=== PATIENT | male | born 1970 | race Caucasian/White ===

== ENCOUNTER 2022-10-12 14:33 | Emergency (ER) | payer OTHER, SELFPAY ==
--- NOTE | ~2022-10-12 | XR_ITS ---
EXAMINATION: XR LUMBOSACRAL SPINE CLINICAL INFORMATION: Back pain COMPARISON: None available. TECHNIQUE: Three views of the lumbosacral spine. FINDINGS: Lumbar vertebrae have normal height and normal alignment. There is no fracture or bone destruction. No spondylolysis. There is multilevel vertebral endplate spur of lower thoracic and lumbar vertebrae. Multilevel disc height narrowing which is most significant at L4-L5 and L5-S1. There is mild to moderate facet joint arthrosis at the lower lumbar spine. Sacroiliac joints are normal. XR/XR lumbar spine 2-3V IMPRESSION: 1. No acute abnormality. 2. Degenerative spondylosis of lumbar spine.
[2022-10-12 14:38] VITALS: BP 170/99; PULSE 67; RESP 19; TEMP 36.6; O2SAT 97; BMI 42.5
--- NOTE | 2022-10-12 14:38 | ED.BACK ---
HPI - Back Pain/Injury General Chief Complaint: Back Pain/Injury <JOSE MIGUEL Crump - Last Filed: 10/12/22 14:39> Stated Complaint: Back pain <JOSE MIGUEL Crump Last Filed: 10/12/22 14:39> Time Seen by Provider: 10/12/22 15:46 <JOSE MIGUEL Crump - Last Filed: 10/12/22 14:39> Source: patient <JOSE MIGUEL Gibson - Last Filed: 10/12/22 17:32> Mode of arrival: ambulatory <JOSE MIGUEL Gibson Last Filed: 10/12/22 17:32> Limitations: no limitations <JOSE MIGUEL Gibson Last Filed: 10/12/22 17:32> History of Present Illness HPI Narrative: 52-year-old male with no significant past medical history presents to the ED c/o 5 days of left lower back pain after moving heavy weights at home. pain is nonradiating, worse with movement. Reports minimal relief with Tylenol/naproxen. Denies urinary/stool incontinence, hematuria, muscle weakness, numbness, or tingling, fever, chills, SOB, chest pain. <JOSE MIGUEL Gibson Last Filed: 10/12/22 17:32> MD elicited complaint: back pain <JOSE MIGUEL Gibson - Last Filed: 10/12/22 17:32> Onset (ago): day(s) (5) <JOSE MIGUEL Gibson Last Filed: 10/12/22 17:32> Treatments prior to arrival: NSAIDS <JOSE MIGUEL Gibson Last Filed: 10/12/22 17:32> Related Data Home Medications: Previous Rx's Medication Instructions Recorded acetaminophen 500 mg tablet 500 mg PO Q6H PRN fever or pain 10/12/22 (Tylenol Extra Strength) #14 tabs cyclobenzaprine 5 mg tablet 5 mg PO Q8H PRN pain (scale score 10/12/22 7-10) 5 days #14 tabs lidocaine 5 % topical patch 1 patch topical DAILY PRN pain #30 10/12/22 (Lidoderm) ea naproxen 500 mg tablet 500 mg PO BID PRN pain 10 days #20 10/12/22 tabs <JOSE MIGUEL Crump - Last Filed: 10/12/22 14:39> Allergies/Adverse Reactions: Allergies Allergy/AdvReac Type Severity Reaction Status Date / Time No Known Allergies Allergy Verified 10/12/22 14:37 [No Known Allergies*] <JOSE MIGUEL Crump - Last Filed: 10/12/22 14:39> Review of Systems Review of Systems: Constitutional: No Fever, No Chills ENT/Mouth: No Nasal Congestion, No sore throat, No Rhinorrhea, No Swallowing Difficulty Cardiovascular: No Chest Pain, No SOB Respiratory: No Cough, No Sputum, No Wheezing Gastrointestinal: No Nausea, No Vomiting, No Diarrhea, No Constipation, No Abdominal pain Genitourinary: No Hematuria, No Urinary Incontinence/retention, No Flank Pain Musculoskeletal: + back pain, No joint pain, No Myalgias, No Joint Swelling Skin: No Skin Lesions, No rash Neuro: No Weakness, No Numbness, No Paresthesias <JOSE MIGUEL Gibson - Last Filed: 10/12/22 17:32> Yes all other systems are reviewed and are negative <JOSE MIGUEL Gibson - Last Filed: 10/12/22 17:32> Constitutional: Constitutional: Reports as per HPI <JOSE MIGUEL Gibson - Last Filed: 10/12/22 17:32> Neurologic: Denies Sensory deficit (Neuro) <JOSE MIGUEL Gibson Last Filed: 10/12/22 17:32> [facility] [place] Past Medical History Attestation statement: The following information was validated with the patient. <JOSE MIGUEL Gibson Last Filed: 10/12/22 17:32> Social History Social History: Social History Advance Directives: No Advance Directives Information Provided: No <JOSE MIGUEL Crump Last Filed: 10/12/22 14:39> Physical Exam Vital Signs: Vital Signs: Last Vital Signs Temp 98 F 10/12/22 14:38 Pulse 67 10/12/22 14:38 Resp 19 10/12/22 14:38 BP 170/99 H 10/12/22 14:38 Pulse Ox 97 10/12/22 14:38 O2 Del Method Room Air 10/12/22 14:38 BMI result Body Mass Index 42.5 <JOSE MIGUEL Crump - Last Filed: 10/12/22 14:39> Vital Signs: Last Vital Signs Temp 98 F 10/12/22 14:38 Pulse 67 10/12/22 14:38 Resp 19 10/12/22 14:38 BP 170/99 H 10/12/22 14:38 Pulse Ox 97 10/12/22 14:38 O2 Del Method Room Air 10/12/22 14:38 BMI result Body Mass Index 42.5 <JOSE MIGUEL Gibson - Last Filed: 10/12/22 17:32> Const: General: cooperative, healthy appearing and no acute distress <JOSE MIGUEL Gibson - Last Filed: 10/12/22 17:32> Orientation/consciousness: patient oriented x3 <JOSE MIGUEL Gibson - Last Filed: 10/12/22 17:32> Limitations: no limitations <JOSE MIGUEL Gibson - Last Filed: 10/12/22 17:32> HEENT: Head: Yes normal to inspection and Yes atraumatic <JOSE MIGUEL Gibson - Last Filed: 10/12/22 17:32> Ears: hearing grossly normal bilaterally <JOSE MIGUEL Gibson - Last Filed: 10/12/22 17:32> General nose exam: Normal external nose present <JOSE MIGUEL Gibson - Last Filed: 10/12/22 17:32> Face and sinus: Yes normal facial exam <JOSE MIGUEL Gibson - Last Filed: 10/12/22 17:32> Eyes: General: appearance normal, both eyes and all related structures <JOSE MIGUEL Gibson - Last Filed: 10/12/22 17:32> EOM: EOMs intact bilaterally <JOSE MIGUEL Gibson - Last Filed: 10/12/22 17:32> Neck: Other: No midline cervical spinous tenderness <JOSE MIGUEL Gibson - Last Filed: 10/12/22 17:32> Neck: Yes normal visual inspection and Yes no meningeal signs <JOSE MIGUEL Gibson - Last Filed: 10/12/22 17:32> Resp: Effort & Inspection: normal respiratory effort and no respiratory distress <Ammy Sánchez PA - Last Filed: 10/12/22 17:32> Auscultation: clear to auscultation bilaterally <Ammy Sánchez PA - Last Filed: 10/12/22 17:32> Cardio: Rate: regular rate <Ammy Sánchze PA - Last Filed: 10/12/22 17:32> Heart sounds: S1 normal heart sound present and S2 normal heart sound present <Ammy Sánchez PA - Last Filed: 10/12/22 17:32> GI: Inspection: Yes normal to inspection <Ammy Sánchez PA - Last Filed: 10/12/22 17:32> Palpation (GI): Soft to palpation, nontender, no guarding and not rigid <Ammy Sánchez PA - Last Filed: 10/12/22 17:32> : General: Yes no CVA tenderness <Ammy Sánchez PA - Last Filed: 10/12/22 17:32> Back/Spine/Pelvis: Other: No midline thoracic/lumbar spinous tenderness/step-off or deformity. +Tenderness to palpation to left lumbar MSK region. no erythema/ecchymosis <Ammy Sánchez PA - Last Filed: 10/12/22 17:32> Back: no CVA tenderness and No ecchymosis <Ammy Sánchez PA - Last Filed: 10/12/22 17:32> Thoracic/Lumbar Spine: thoracic and lumbar spine normal to inspection <Ammy Sánchez PA - Last Filed: 10/12/22 17:32> Skin: Other: No erythema/ecchymosis noted, no visible deformity, no fluctuate/warmth over the lumbar region. <Ammy Sánchez PA - Last Filed: 10/12/22 17:32> Rashes: no rashes <Ammy Sánchez PA - Last Filed: 10/12/22 17:32> Wounds: no wounds <Ammy Sánchez PA - Last Filed: 10/12/22 17:32> Neuro: Other: Strength intact throughout. No saddle anesthesia. Sensation intact to light touch. Neurovascular intact distally <Ammy Sánchez PA - Last Filed: 10/12/22 17:32> General: patient oriented x3, tone normal, moves all extremities and no meningeal signs <JOSE MIGUEL Gibson Last Filed: 10/12/22 17:32> Gait exam (Neuro): Normal gait present <JOSE MIGUEL Gibson Last Filed: 10/12/22 17:32> Motor exam (neuro): 5/5 motor strength present throughout <JOSE MIGUEL Gibson Last Filed: 10/12/22 17:32> Sensory Exam: No Sensory deficit (Neuro) <JOSE MIGUEL Gibson Last Filed: 10/12/22 17:32> Extrem: General: Yes normal to inspection <JOSE MIGUEL Gibson Last Filed: 10/12/22 17:32> Course Course Course Narrative: This is an RME: Additional HPI, ROS, PE not included below will be deferred to primary provider. 52-year-old male presents with low mid back pain status post lifting 45 lb weight, patient reports this happened Four days ago and has been worsening ever since. Worse with movement better at rest. He heard a pop. Patient reports previous back injuries that have felt similar to this. Patient denies red flag symptoms. patient has been trying OTC medications without relief. Diffuse tenderness to lumbar region. Including midline. Plan imaging, pain medicine <JOSE MIGUEL Crump - Last Filed: 10/12/22 14:39> This is an RME: Additional HPI, ROS, PE not included below will be deferred to primary provider. 52-year-old male presents with low mid back pain status post lifting 45 lb weight, patient reports this happened Four days ago and has been worsening ever since. Worse with movement better at rest. He heard a pop. Patient reports previous back injuries that have felt similar to this. Patient denies red flag symptoms. patient has been trying OTC medications without relief. Diffuse tenderness to lumbar region. Including midline. Plan imaging, pain medicine XR lumbar spine 2-3V IMPRESSION: 1.? No acute abnormality. 2.? Degenerative spondylosis of lumbar spine. > Results discussed with patient including worrisome signs and symptoms and strict return precautions, and when to return to the emergency department. They verbalized understanding and feel safe for discharge at this time. <JOSE MIGUEL Gibson Last Filed: 10/12/22 17:32> Medications Administered Discontinued Medications Generic Name Dose Route Start Last Admin Trade Name Freq PRN Reason Stop Dose Admin Cyclobenzaprine HCl 10 mg 10/12/22 14:40 10/12/22 16:38 Cyclobenzaprine Hcl 10 Mg Tablet PO 10/12/22 14:41 10 mg ONCE ONE Administration Ketorolac Tromethamine 30 mg 10/12/22 14:39 10/12/22 16:39 Ketorolac Tromethamine 15 Mg/Ml Vial IM 10/12/22 14:40 30 mg ONCE ONE Administration Lidocaine 2 patch 10/12/22 14:40 10/12/22 16:35 Lidocaine 4 % Patch Adh..Patch TRANSDERMA 10/12/22 14:41 2 patch ONCE ONE Administration Protocol <JOSE MIGUEL Crump - Last Filed: 10/12/22 14:39> Medications Administered Discontinued Medications Generic Name Dose Route Start Last Admin Trade Name Freq PRN Reason Stop Dose Admin Cyclobenzaprine HCl 10 mg 10/12/22 14:40 10/12/22 16:38 Cyclobenzaprine Hcl 10 Mg Tablet PO 10/12/22 14:41 10 mg ONCE ONE Administration Ketorolac Tromethamine 30 mg 10/12/22 14:39 10/12/22 16:39 Ketorolac Tromethamine 15 Mg/Ml Vial IM 10/12/22 14:40 30 mg ONCE ONE Administration Lidocaine 2 patch 10/12/22 14:40 10/12/22 16:35 Lidocaine 4 % Patch Adh..Patch TRANSDERMA 10/12/22 14:41 2 patch ONCE ONE Administration Protocol <JOSE MIGUEL Gibson - Last Filed: 10/12/22 17:32> Medical Decision Making Medical Decision Making MDM Narrative: 52-year-old male with no significant past medical history presents to the ED c/o 5 days of left lower back pain after moving heavy weights at home. On exam vital signs stable, NAD, nontoxic appearing, no midline spinous tenderness throughout, physical exam as above, no red flag symptoms. Ambulating with steady gait. Concern for MSK spasm/sprain. Less concern for epidural abscess, fracture, herniated disc, nerve compression, or cauda equina. Plan: X-ray ordered in triage, pain management Please refer to course for remaining clinical decision making, interpretation of labs/imaging results, and discussions with consultants and/or family members. <JOSE MIGUEL Gibson - Last Filed: 10/12/22 17:32> Differential Diagnosis Differential Diagnoses: The differential diagnosis associated with the presentation includes <JOSE MIGUEL Gibson - Last Filed: 10/12/22 17:32> As above <JOSE MIGUEL Gibson - Last Filed: 10/12/22 17:32> Admission/Observation Consideration of admission/observation: Escalation of care including admission/observation considered <JOSE MIGUEL Gibson - Last Filed: 10/12/22 17:32> Lab Data MDM Lab Attestation statement: I reviewed the patient's lab results. <JOSE MIGUEL Gibson - Last Filed: 10/12/22 17:32> Radiology Impression Discussion of test interpretation with radiology: I have reviewed the radiologist's reading. <JOSE MIGUEL Gibson - Last Filed: 10/12/22 17:32> External Record Review External record reviewed: Inpatient record, Office record, Outpatient record, Prior outpatient labs, Prior outpatient radiology, Primary care record and Outside ED record <JOSE MIGUEL Gibson - Last Filed: 10/12/22 17:32> Discharge Plan Discharge Clinical Impression: Strain of lumbar region <JOSE MIGUEL Crump - Last Filed: 10/12/22 14:39> Patient Disposition: Home, Self-Care <JOSE MIGUEL Crump Last Filed: 10/12/22 14:39> Instructions: Acute Low Back Pain (ED) <JOSE MIGUEL Crump Last Filed: 10/12/22 14:39> Additional Instructions: Your pain is likely musculoskeletal Flexeril is a muscle relaxer, take at night as it makes you drowsy, do not drive, drink alcohol, or operate machinery while taking it Naproxen as an anti-inflammatory / pain medication, take with food Lidoderm patches are numbing patches, apply to painful area In addition take Tylenol at home If symptoms persist or worsen, pain becomes unbearable, you developed urinary retention or incontinence, or weakness return to the ED <JOSEM IGUEL Crump Last Filed: 10/12/22 14:39> Prescriptions: New acetaminophen [Tylenol Extra Strength] 500 mg tablet 500 mg PO Q6H PRN (Reason: fever or pain) Qty: 14 0RF lidocaine [Lidoderm] 5 % adhesive patch,medicated 1 patch topical DAILY MDD remove after 12 hours PRN (Reason: pain) Qty: 30 0RF Rx Instructions: leave on most painful area for up to 12 hrs cyclobenzaprine 5 mg tablet 5 mg PO Q8H PRN (Reason: pain (scale score 7-10)) 5 Days Qty: 14 0RF naproxen 500 mg tablet 500 mg PO BID PRN (Reason: pain) 10 Days Qty: 20 0RF <JOSE MIGUEL Crump - Last Filed: 10/12/22 14:39> Referrals: Physician,Unknown J [Primary Care Provider] - 5 days <JOSE MIGUEL Crump - Last Filed: 10/12/22 14:39> Stand Alone Forms: Work/School Release <JOSE MIGUEL Crump - Last Filed: 10/12/22 14:39>
[2022-10-12] MEDS: Lidocaine 4 % Patch ADH..PATCH 2 PATCH TRANSDERMA (16:35)
[2022-10-12] MEDS: Cyclobenzaprine HCl 10 MG TABLET PO (16:38)
[2022-10-12] MEDS: Ketorolac Tromethamine 15 MG/ML VIAL 30 MG IM (16:39)
== END 2022-10-12 17:54 | disposition home or self-care (01) ==
PROVIDERS: Emergency Provider Emergency Medicine
DX: S39.012A Strain of muscle, fascia and tendon of lower back, initial encounter (principal); X50.0XXA Overexertion from strenuous movement or load, initial encounter; Y93.9 Activity, unspecified; Y92.019 Unspecified place in single-family (private) house as the place of occurrence of the external cause; Y99.9 Unspecified external cause status
CPT/HCPCS: 72100; 96372; 99283; 99284; J1885